=== PATIENT | female | born 1970 | race Caucasian/White ===

== ENCOUNTER → 2021-03-22 10:30 | Outpatient (CLI) | payer OTHER, SELFPAY ==
--- NOTE | ~2021-03-22 | DEXA_ITS ---
Bone Density Report Name: Ana Laura Arriola Age: 50 Sex: Female Ethnicity: White Date of : 1970 Indication: postmenopausal; screening for osteoporosis; Referring Provider: ARISTEO CRAIG Study: Bone densitometry was performed. Exam Date: March 22, 2021 Accession number: [id number] Bone Density: Region BMD T-score Z-score Classification AP Spine (L1-L4) 0.800 -2.2 -1.4 Osteopenia Femoral Neck (Left) 0.492 -3.2 -2.4 Osteoporosis Total Hip (Left) 0.579 -3.0 -2.5 Osteoporosis Femoral Neck (Right) 0.500 -3.1 -2.3 Osteoporosis Total Hip (Right) 0.583 -2.9 -2.4 Osteoporosis Total Hip Mean 0.581 -3.0 -2.5 Osteoporosis World Health Organization criteria for BMD impression classify patients as: Normal (T-score at or above -1.0), Osteopenia (T-score between -1.0 and -2.5), or Osteoporosis (T-score at or below -2.5). 10-year Fracture Risk: FRAX not reported because: Some T-score for Spine Total or Hip Total or Femoral Neck at or below -2.5 Treated for osteoporosis Clinical Information Provided by Patient: Is being treated for osteoporosis Has used the following medications: HRT (i.e. estrogen/hormone therapy), Vitamin D, MTV Patient maximum height was 64.5 Menopause Age: 49 No regular weight bearing exercise Drinks caffeinated beverages Onset of menses at age 13 Number of children 2 Impression: The patient has osteoporosis, based on the Left Femoral Neck T-score. Discussion: It is important to ask patients whether they are taking their medications and to encourage continued and appropriate compliance with their osteoporosis therapies to reduce fracture risk. It is also important to review their risk factors and encourage appropriate calcium and vitamin D intakes, exercise, fall prevention and other lifestyle measures. Follow-Up: Consider a repeat BMD and Vertebral Fracture Assessment (VFA) exam in 2 years or sooner if medically necessary, to reassess this patient's status. Reported by: ELMO on 03/22/2021 12:04:00 PM. Reviewed, dictated and finalized at location AStephanie [place]
--- NOTE | ~2021-03-22 | MM_ITS ---
EXAMINATION: MM screening natalia BI w sohan HISTORY: Screening mammogram TECHNIQUE: Craniocaudal and mediolateral oblique 3-D tomosynthesis images were obtained and synthetic 2-D images were generated. CAD analysis was submitted and interpreted. COMPARISON: No prior mammogram is available for comparison at this institution. BREAST PARENCHYMAL COMPOSITION: There are scattered areas of fibroglandular density. FINDINGS: New focal asymmetry is suggested in the posterior lower left breast on craniocaudal view (c raniocaudal Tomosynthesis image ). Diagnostic left mammogram is recommended, with ultrasound if required. Otherwise there is no evidence of suspicious mass, calcification, or architectural distortion to sugg est malignancy in either breast. There has been no other suspicious interval change. IMPRESSION: 1. New asymmetric density in the posterior lower mid left breast 2. Diagnostic left mammogram is recommended, with ultrasound if required BI-RADS Category 0: Incomplete: Needs additional imaging evaluation. Reviewed, dictated and finalized at location A.
== END ==
PROVIDERS: PCP Family Medicine; Visit Provider Obstetrics & Gynecology Gynecology
DX: Z12.31 Encounter for screening mammogram for malignant neoplasm of breast (principal); Z78.0 Asymptomatic menopausal state; R92.8 Other abnormal and inconclusive findings on diagnostic imaging of breast; M85.88 Other specified disorders of bone density and structure, other site; M81.0 Age-related osteoporosis without current pathological fracture
CPT/HCPCS: 77063; 77067; 77080

== ENCOUNTER → 2021-04-26 07:39 | Outpatient (CLI) | payer OTHER, SELFPAY ==
--- NOTE | ~2021-04-26 | MMUS_ITS ---
EXAMINATION: MM diagnostic natalia LT w sohan, US breast LT complete HISTORY: Follow-up left breast asymmetry TECHNIQUE: Additional 3-D tomosynthesis images of the left breast were performed and synthetic 2-D im ages were generated. CAD analysis was submitted and interpreted. High resolution complete left breast ultrasound was performed. COMPARISON: 01/04/2014 BREAST PARENCHYMAL COMPOSITION: Breast composed of scattered areas of fibroglandular density. FINDINGS: MAMMOGRAPHIC FINDINGS: There are no suspicious masses, calcifications or architectural distortion in the left breast to sugg est malignancy. ULTRASOUND: Complete left breast ultrasound: Normal heterogeneous echotexture without focal solid or cystic mass. IMPRESSION: 1. No evidence for malignancy in the left breast. 2. Routine yearly screening mammogram and regular clinical breast examination are recommended. BI-RADS Category 2: Benign finding(s). Reviewed, dictated and finalized at location A. IMPRESSION: 1. No evidence for malignancy in the left breast. 2. Routine yearly screening mammogram and regular clinical breast examination a re recommended. BI-RADS Category 2: Benign finding(s).
== END ==
PROVIDERS: PCP Family Medicine; Visit Provider Obstetrics & Gynecology Gynecology
DX: R92.8 Other abnormal and inconclusive findings on diagnostic imaging of breast (principal)
CPT/HCPCS: 76641; 77061; 77065; G0279

== ENCOUNTER 2022-12-17 12:56 | Outpatient (CLI) | payer BC, SELFPAY ==
--- NOTE | ~2022-12-17 | XR_ITS ---
EXAMINATION: XR chest 2V Exam Date/Time: 12/17/2022 13:07 CDT HISTORY: mid chest pain x 2 wks Comparison: None available. RESULT: Lines, tubes, and devices: None. Lungs and pleura: Clear. Cardiomediastinal silhouette: Unremarkable. Other: No acute osseous or upper abdominal finding. IMPRESSION: No acute cardiopulmonary process. Reviewed, dictated and finalized at location K.
--- NOTE | 2022-12-17 13:17 | ECG_ITS ---
Measurements Intervals [place] Rate: 79 P: 61 CA: 154 QRS: 71 QRSD: 81 T: 70 QT: 374 QTc: 429 Interpretive Statements SINUS RHYTHM NO PREVIOUS ECG AVAILABLE FOR COMPARISON Electronically Signed On 12-18-2022 13:59:56 CDT by Christiano Proctor M.D.
== END 2022-12-17 12:57 | disposition home or self-care (01) ==
PROVIDERS: PCP Family Medicine; Visit Provider Physician Assistant Medical
DX: R07.89 Other chest pain (principal)
CPT/HCPCS: 71046; 93005

== ENCOUNTER → 2023-01-16 16:32 | Outpatient (CLI) | payer BC, SELFPAY ==
--- NOTE | ~2023-01-16 | MM_ITS ---
EXAMINATION: MM screening [facility] BI w sohan HISTORY: Screening mammogram TECHNIQUE: Craniocaudal and mediolateral oblique 3-D tomosynthesis images were obtained and synthetic 2-D images were generated. CAD analysis was submitted and interpreted. COMPARISON: 04/26/2021, 03/22/2021, 07/13/2019 BREAST PARENCHYMAL COMPOSITION: There are scattered areas of fibroglandular density. FINDINGS: No suspicious mass, calcification, or architectural distortion are identified in either vaughn ast to suggest malignancy. There has been no suspicious interval change. IMPRESSION: 1. No mammographic evidence of malignancy. 2. Recommend routine screening mammography in one year. BI-RADS Category 1: Negative Reviewed, dictated and finalized at location A.
== END ==
PROVIDERS: PCP Family Medicine; Visit Provider Obstetrics & Gynecology Gynecology
DX: Z12.31 Encounter for screening mammogram for malignant neoplasm of breast (principal)
CPT/HCPCS: 77063; 77067

== ENCOUNTER 2023-01-30 09:10 | Outpatient (CLI) | payer BC, SELFPAY ==
--- NOTE | 2023-01-30 09:32 | EST_ITS ---
Patient Info Name: Ana Laura Arriola Age: 52 years : 1970 Gender: Female Ht: 65 in Wt: 137 lbs BSA: 1.69 m2 HR: 84 bpm BP: 125 / 78 mmHg Heart Rhythm: Sinus Rhythm Exam Date: 01/30/2023 9:42 AM Exam Location: [facility] Stress Patient Status: Outpatient Admit Date: 01/30/2023 Staff Ordering Physician: Lazara Atkins PA-C Attending Provider: Penelope Soto MD Exercise Technologist: Crystal Devries CT Exercise Physician: German Bradley DO Exam Type: CA stress test treadmill Study Info Indications R07.89 - Other chest pain A regadenoson stress test was performed. Summary 1. 1. Negative Curtis exercise stress test for ischemic ST changes by ECG criteria. 2. 2. Good functional capacity, achieving 10 METs of workload. 3. 3. Appropriate HR response to exercise. 4. 4. Appropriate HR recovery at 1 minute post exercise. 5. 5. No imaging with stress testing. 6. 6. Patient informed of the above results. Protocol: Curtis Stress ECG Details Stage: REST Duration (min): 1 min : 6 sec Speed (mph): 0.0 Grade (%): 0 HR (bpm): 84 SBP (mmHg): 125 DBP (mmHg): 78 METS: --- Stage: REST Duration (min): 16 min : 20 sec Speed (mph): 0.0 Grade (%): 0 HR (bpm): 97 SBP (mmHg): 125 DBP (mmHg): 78 METS: --- Stage: STAGE 1 Duration (min): 1 min : 0 sec Speed (mph): 1.7 Grade (%): 10 HR (bpm): 112 SBP (mmHg): 125 DBP (mmHg): 78 METS: --- Stage: STAGE 1 Duration (min): 2 min : 0 sec Speed (mph): 1.7 Grade (%): 10 HR (bpm): 122 SBP (mmHg): 125 DBP (mmHg): 78 METS: --- Stage: STAGE 1 Duration (min): 3 min : 0 sec Speed (mph): 1.7 Grade (%): 10 HR (bpm): 116 SBP (mmHg): 150 DBP (mmHg): 67 METS: --- Stage: STAGE 2 Duration (min): 1 min : 0 sec Speed (mph): 2.5 Grade (%): 12 HR (bpm): 125 SBP (mmHg): 150 DBP (mmHg): 67 METS: --- Stage: STAGE 2 Duration (min): 2 min : 0 sec Speed (mph): 2.5 Grade (%): 12 HR (bpm): 135 SBP (mmHg): 145 DBP (mmHg): 63 METS: --- Stage: STAGE 2 Duration (min): 3 min : 0 sec Speed (mph): 2.5 Grade (%): 12 HR (bpm): 139 SBP (mmHg): 145 DBP (mmHg): 63 METS: --- Stage: STAGE 3 Duration (min): 1 min : 0 sec Speed (mph): 3.4 Grade (%): 14 HR (bpm): 153 SBP (mmHg): 145 DBP (mmHg): 63 METS: --- Stage: STAGE 3 Duration (min): 1 min : 40 sec Speed (mph): 3.4 Grade (%): 14 HR (bpm): 160 SBP (mmHg): 145 DBP (mmHg): 63 METS: --- Stage: RECOVERY Duration (min): 0 min : 19 sec Speed (mph): 0.0 Grade (%): 0 HR (bpm): 160 SBP (mmHg): 145 DBP (mmHg): 63 METS: --- Stage: RECOVERY Duration (min): 1 min : 19 sec Speed (mph): 0.0 Grade (%): 0 HR (bpm): 114 SBP (mmHg): 145 DBP (mmHg): 63 METS: --- Stage: RECOVERY Duration (min): 2 min : 19 sec Speed (mph): 0.0 Grade (%): 0 HR (bpm): 104 SBP (mmHg): 145 DBP (mmHg): 63 METS:
== END 2023-01-30 09:11 | disposition home or self-care (01) ==
LOC: ANHCARD 09:12
PROVIDERS: PCP Family Medicine; Visit Provider Family Medicine
DX: R07.89 Other chest pain (principal)
CPT/HCPCS: 93017

== ENCOUNTER → 2023-06-03 14:04 | Outpatient (CLI) | payer BC, SELFPAY ==
--- NOTE | ~2023-06-03 | US_ITS ---
EXAMINATION: US thyroid DATE: 06/03/2023 14:39 INDICATION: Nontoxic multinodular goiter. TECHNIQUE: Multiple ultrasound images of the thyroid were obtained. COMPARISON: None. FINDINGS: The right thyroid lobe measures 6.0 x 1.7 x 1.5 cm. The left thyroid lobe measures 4.5 x 0.9 x 1.5 c m. In the right thyroid lobe, there is a 2.2 cm solid, hypoechoic, wider than tall nodule with kirit h margin without echogenic foci (TI-RADS TR4). In the right thyroid lobe, there is a 7 mm solid, hypo echoic, wider than tall nodule with smooth margin and macrocalcification (TR4). IMPRESSION: 1. Multinodular goiter. The patient reports a prior benign biopsy in 2021. If the 2.2 cm right thyroi d nodule is stable from that time, no follow-up is needed. Reviewed, dictated and finalized at location A. IMPRESSION: 1. Multinodular goiter. The patient reports a prior benign biopsy in 2021. If t he 2.2 cm right thyroid nodule is stable from that time, no follow-up is needed .
== END ==
PROVIDERS: PCP Family Medicine; Visit Provider Otolaryngology
DX: E04.2 Nontoxic multinodular goiter (principal)
CPT/HCPCS: 76536

== ENCOUNTER 2023-07-15 09:54 | Outpatient (CLI) | payer BC, SELFPAY ==
--- NOTE | ~2023-07-15 | MR_ITS ---
EXAMINATION: MR cervical spine wo con DATE: 07/15/2023 10:57 INDICATION: Neck pain. TECHNIQUE: Magnetic resonance imaging (MRI) of the cervical spine was performed without intravenous c ontrast. COMPARISON: None FINDINGS: There is 3 degrees levocurvature of cervicothoracic spine. There is mild chronic anterior w edging of T1 vertebral body. There is mildly decreased disc height at C5-C6 and C6-C7. The spinal cor d signal intensity is normal. The following disc levels are specifically discussed: C2-C3: The disc does not extend beyond the endplate margin. There is no uncovertebral joint osteoarth ritis. There is no facet joint osteoarthritis. There is no neural foraminal stenosis. There is no mario alberto tral canal stenosis. C3-C4: The disc does not extend beyond the endplate margin. There is mild bilateral uncovertebral lawrence nt osteoarthritis. There is moderate right and mild left facet joint osteoarthritis. There is no neur al foraminal stenosis. There is no central canal stenosis. C4-C5: The disc does not extend beyond the endplate margin. There is no uncovertebral joint osteoarth ritis. There is no facet joint osteoarthritis. There is no neural foraminal stenosis. There is no mario alberto tral canal stenosis. C5-C6: There is a central extrusion. There is no uncovertebral joint osteoarthritis. There is no face t joint osteoarthritis. There is no neural foraminal stenosis. There is mild central canal stenosis. C6-C7: The disc is bulging. There is mild bilateral uncovertebral joint osteoarthritis. There is mild bilateral facet joint osteoarthritis. There is mild bilateral neural foraminal stenosis. There is mi ld central canal stenosis. C7-T1: The disc is bulging. There is no uncovertebral joint osteoarthritis. There is mild bilateral f acet joint osteoarthritis. There is mild bilateral neural foraminal stenosis. There is no central can al stenosis. IMPRESSION: 1. Mild cervical spondylosis. Reviewed, dictated and finalized at location E. ET MARKER
== END 2023-07-15 09:55 ==
PROVIDERS: PCP Family Medicine; Visit Provider Family Medicine
DX: M54.2 Cervicalgia (principal); R93.7 Abnormal findings on diagnostic imaging of other parts of musculoskeletal system; M43.02 Spondylolysis, cervical region
CPT/HCPCS: 72141

== ENCOUNTER 2024-05-27 07:43 | Outpatient (CLI) | payer BC, SELFPAY ==
--- NOTE | ~2024-05-27 | MM_ITS ---
EXAMINATION: MM screening [facility] BI w sohan HISTORY: Screening TECHNIQUE: Craniocaudal and mediolateral oblique 3-D tomosynthesis images were obtained and synthetic 2-D images were generated. CAD analysis was submitted and interpreted. COMPARISON: Comparison to multiple prior studies sequentially, with oldest reviewed study dated 01/10. BREAST PARENCHYMAL COMPOSITION: Not dense: There are scattered areas of fibroglandular density. FINDINGS: There is no evidence of suspicious mass, calcification, or architectural distortion to sugg est malignancy in either breast. There has been no suspicious interval change. IMPRESSION: 1. No mammographic evidence of malignancy. 2. Recommend routine screening mammography in one year. BI-RADS Category 1: Negative Reviewed, dictated and finalized at location B.
== END 2024-05-27 07:44 | disposition home or self-care (01) ==
PROVIDERS: PCP Family Medicine; Visit Provider Obstetrics & Gynecology Gynecology
DX: Z12.31 Encounter for screening mammogram for malignant neoplasm of breast (principal)
CPT/HCPCS: 77063; 77067

== ENCOUNTER 2024-06-18 11:54 | Outpatient (CLI) | payer BC, SELFPAY ==
--- NOTE | ~2024-06-18 | US_ITS ---
EXAMINATION: US thyroid DATE: 06/18/2024 12:11 INDICATION: Nontoxic multinodular goiter TECHNIQUE: Multiple ultrasound images of the thyroid were obtained. COMPARISON: 06/03/2023 FINDINGS: The right thyroid lobe measures 6.0 x 1.5 x 1.5 cm. In the lower pole of the right lobe of the thyroid gland, there is a 20 x 13 x 15 mm mixed cystic and solid, isoechoic, wider than tall nodule with smooth margins and no echogenic foci (TIRADS 2 nodule) . Previously measuring 22 x 15 x 16 mm, decreased in size from prior. In the midportion of the right lobe of the thyroid gland, there is a 8 x 3 x 7 mm solid, hyperechoic , wider than tall nodule with ill-defined margins and macrocalcifications TIRADS 4 nodule). Previousl y measuring 7 x 5 x 7 mm, which given changes in positioning and technique, is unchanged. The left thyroid lobe measures 4.2 x 0.9 x 1.5 cm. The isthmus measures 2.3 mm and is unremarkable. There is normal echotexture and echogenicity throughout the left lobe of the thyroid gland, as well a s the remainder of the right lobe of the thyroid gland and the isthmus. No discrete nodules identified within the left lobe of the thyroid gland or the isthmus. Normal vascular flow is present bilaterally. IMPRESSION: TI-RADS 4 nodule within the midportion of the right lobe of the thyroid gland which does not meet siz e criteria for follow-up or FNA. TI-RADS 2 nodule within the lower pole of the right lobe of the thyroid gland which is decreasing in size from previous examination, and is not suspicious and no FNA is recommended Reviewed, dictated and finalized at location A. IMPRESSION: TI-RADS 4 nodule within the midportion of the right lobe of the thyroid gland w hich does not meet size criteria for follow-up or FNA. TI-RADS 2 nodule within the lower pole of the right lobe of the thyroid gland w hich is decreasing in size from previous examination, and is not suspicious and no FNA is recommended
== END 2024-06-18 11:55 | disposition home or self-care (01) ==
LOC: MICIMG 11:55
PROVIDERS: PCP Family Medicine; Visit Provider Otolaryngology
DX: E04.2 Nontoxic multinodular goiter (principal)
CPT/HCPCS: 76536

== ENCOUNTER 2025-05-18 12:48 | Outpatient (CLI) | payer BC, SELFPAY ==
--- NOTE | ~2025-05-18 | CT_ITS ---
CT ABDOMEN AND PELVIS WITHOUT CONTRAST Clinical History: Unspecified abdominal pain, RLQ Comparison: CT abdomen pelvis 12/26/2014 Technique: Unenhanced axial images lung bases to symphysis pubis Coronal, sagittal reformats CT images acquired with automatic exposure control for dose reduction DLP: 411 mGy-cm Findings: Without intravenous contrast, sensitivity for detecting visceral parenchymal abnormalities decreased. Lung bases: Clear. Visualized heart and pericardium: Unremarkable. Liver: Unremarkable. Gallbladder: Unremarkable. Spleen: Unremarkable. Pancreas: Unremarkable. Adrenal glands: Unremarkable. Kidneys: Right kidney- No hydronephrosis. Tiny stones. Left kidney- No hydronephrosis. Tiny stones. Distal esophagus/stomach: Unremarkable. Small bowel loops: Normal caliber and wall thickness. Colon: Normal caliber and wall thickness. Normal RLQ appendix. Nodes: No enlarged nodes. Peritoneum: No ascites. No free intraperitoneal air. Urinary bladder: Unremarkable. Tiny calcification near left UVJ. Uterus: Unremarkable. Adnexa: No masses. Bones: No acute bony abnormality. Soft tissues: Small umbilical hernia with fat. Unopacified abdominal aorta: No aneurysmal dilatation. IMPRESSION: 1. No acute findings. 2. Small bilateral nephrolithiasis. No hydronephrosis. 3. Tiny calcification near left UVJ. Distal ureteral stone versus phlebolith, but again, no hydronephrosis. Reviewed, dictated and finalized at location R.
== END 2025-05-18 12:49 | disposition home or self-care (01) ==
LOC: MICIMG 12:49
PROVIDERS: PCP Family Medicine; Visit Provider Family Medicine
DX: N20.2 Calculus of kidney with calculus of ureter (principal)
CPT/HCPCS: 74176

== ENCOUNTER 2025-06-08 07:36 | Outpatient (CLI) | payer BC, SELFPAY ==
--- NOTE | ~2025-06-08 | MM_ITS ---
EXAMINATION: MM screening [facility] BI w sohan HISTORY: Screening TECHNIQUE: Craniocaudal and mediolateral oblique 3-D tomosynthesis images were obtained and synthetic 2-D images were generated. CAD analysis was submitted and interpreted. COMPARISON: 01/16/2023 BREAST PARENCHYMAL COMPOSITION: The breasts are heterogeneously dense, which may obscure small masses. FINDINGS: There is no evidence of suspicious mass, calcification, or architectural distortion to suggest malignancy. Asymmetry in the upright breast, posterior depth, seen in the right MLO projection. IMPRESSION: 1. Asymmetry in the upper right breast, posterior depth, seen in the right MLO projection. 2. No evidence of malignancy left breast. BI-RADS 0: Incomplete-Need additional imaging evaluation. Reviewed, dictated and finalized at location Q.
== END 2025-06-08 07:37 | disposition home or self-care (01) ==
PROVIDERS: PCP Obstetrics & Gynecology Gynecology; Visit Provider Obstetrics & Gynecology Gynecology
DX: Z12.31 Encounter for screening mammogram for malignant neoplasm of breast (principal); R92.8 Other abnormal and inconclusive findings on diagnostic imaging of breast
CPT/HCPCS: 77063; 77067

== ENCOUNTER 2025-07-28 12:54 | Outpatient (CLI) | payer BC, SELFPAY ==
--- NOTE | ~2025-07-28 | MMUS_ITS ---
EXAMINATION: US breast right limited, MM diagnostic mammogram right w sohan HISTORY: Additional imaging TECHNIQUE: Craniocaudal and mediolateral oblique 3-D tomosynthesis images were obtained and synthetic 2-D images were generated. CAD analysis was submitted and interpreted. Grayscale sonography over the area(s) of interest with color Doppler if there is a finding. COMPARISON: June 08 BREAST PARENCHYMAL COMPOSITION: Dense: The breasts are heterogeneously dense MAMMOGRAM FINDINGS: A spiculated mass persists in the posterior depth at approximately 10:00. There are no suspicious calcifications. There are no skin or nipple abnormalities identified. There is no adenopathy seen on the images submitted. ULTRASOUND FINDINGS: Sonography 2 10:00 right breast demonstrates the presence of a hypoechoic mass with ill-defined margins and irregular shape. There are a few angular margins. There is an echogenic halo. The maximum dimension is 1.2 cm. This accounts for the mammographic mass. There also appears to be some neovascularity. Sonography through the right axilla demonstrates a lymph node with cortical thickness up to 5 mm. IMPRESSION: Suspicious sonographic masses accounting for the mammographic finding. Axillary lymph node with cortical thickening. Ultrasound-guided core biopsy is recommended for both structures. BI-RADS 5 - Highly suggestive of malignancy - appropriate action should be taken. Reviewed, dictated and finalized at location B. AT MONITORING ANALYST IMPRESSION: Suspicious sonographic masses accounting for the mammographic finding. Axillary lymph node with cortical thickening. Ultrasound-guided core biopsy is recommen ded for both structures. BI-RADS 5 - Highly suggestive of malignancy - appropriate action should be take n.
--- OUTSIDE RECORDS SUMMARY | 2025-07-28 14:02 | XMS_ITS | Clinical Summary ---
Author Organization [facility] Address [address] [place] [address] Care Team Providers Care Cooling Room Attendant Name Role Phone Penelope Soto MD Primary Care Provider Source Comments [facility],non-owned Affiliates and Associated Physician Practices is amultiple site organization consisting of ambulatory clinics and hospital sitesin [place], [place], [place] and [place]. This disclosure is being madepursuant to the Care Everywhere program and may not contain all information available regarding this patient. Last updated 18.[facility] Allergies No known active allergies Medications * Be aware that medications may not be up to date on this document. Alwaysverify current medications with the patient. amitriptyline (ELAVIL) 10 MG tablet TK 2 T PO QHS 0 9 Active nitrofurantoin macrocrystal (MACRODANTIN) 50 MG capsule 9 Active metroNIDAZOLE (FLAGYL) 500 MG tablet 8 Active IBUPROFEN PO Active cetirizine (ZYRTEC ALLERGY) 10 MG tablet Take 10 mg by mouth once daily Active Multiple Vitamins-Calcium (ONE-A-DAY WOMENS PO) Active valACYclovir (VALTREX) 500 MG tablet Take 500 mg by mouth 2 times daily 9 Active vitamin D, ergocalciferol, (DRISDOL) 87876 units capsule Take 1 capsule by mouth every 7 days 12 capsule 9 Active Active Problems Problem Noted Date Diagnosed Date Carpal tunnel syndrome 01/07/2019 Hypovitaminosis D 01/07/2019 Pain in joint, lower leg 11/10/2018 Bilateral hand pain 11/10/2018 Paresthesias 11/10/2018 Family hx osteoporosis 11/10/2018 Family History Medical History Relation Name Comments Hypertension Father Hyperlipidemia Mother Hypertension Mother Arthritis - Rheumatoid Other great maternal aun t Osteoporosis Sister onset at 46 yea rs old Autism Spectrum Disorder Son Lupus Neg Hx Psoriasis Neg Hx Thyroid Disease Neg Hx Relation Name Status Comments Brother Alive Daughter Alive Father Alive Mother Alive Other great maternal aunt Sister Alive Son Alive Social History Tobacco Use Types Packs/Day Years Used Date Smoking Tobacco: Never Smokeless Tobacco: Never Alcohol Use Standard Drinks/Week Comments Yes 0 (1 standard drink = 0.6 oz pur e alcohol) occasional Comments No Sex and Gender Information Value Date Recorded Sex Assigned at Not on file 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 Gender Identity Not on file Sexual Orientation Not on file Last Filed Vital Signs Vital Sign Reading Time Taken Comments Blood Pressure 128/82 01/07/2019 2:04 PM CDT Pulse 96 01/07/2019 2:04 PM CDT Temperature 36.7 C (98 F) 01/07/2019 2:04 PM CDT Respiratory Rate - - Oxygen Saturation - - Inhaled Oxygen Concentration - - Weight 61.2 kg (135 lb) 01/07/2019 2:04 PM CDT Height 165.1 cm (5' 5) 01/07/2019 2:04 PM CDT Body Mass Index 22.47 01/07/2019 2:04 PM CDT Plan of Treatment Health Maintenance Due Date Last Done Comments COLOGUARD (AGES 45-75) - COL ON CA SCREENING 1970 COLON MONITORING 1970 COLONOSCOPY - COLON CA SCREENING 1969 CT COLONOGRAPHY - COLON CA SCREENING 1970 Colorectal Cancer Screening 1970 FIT - COLON CA SCREENING 1970 FLEX SIG - COLON CA SCREENING 1970 LIPID TESTING 1970 MAMMOGRAM 1970 HIV SCREENING 1984 DTAP/TDAP/TD VACCINES (1 - Tdap) 1988 HEPATITIS B VACCINE (1 of 3 - 19+ 3-dose series) 1988 PAP SMEAR 1990 Cervical Cancer Screening 11/07/1999 PAP with HPV 11/07/1999 PNEUMOCOCCAL VACCINE 50+ (1 of 1 - PCV) 11/07/2019 ZOSTER VACCINE (1 of 2) 11/07/2019 DEPRESSION SCREENING 08/26/2024 COVID-19 VACCINE (1 - 2024-2 6 season) 2025 INFLUENZA VACCINE (#1) 2025 HEPATITIS C SCREENING Completed 12/08/2018 HIB VACCINE Aged Out No longer eligi ble based on patient's age to complete this topic HPV VACCINE Aged Out No longer eligi ble based on patient's age to complete this topic MENINGOCOCCAL (Group B) VACC INE SHARED DECISION-MAKING Aged Out No longer eligibl e based on patient's age to complete this topic MENINGOCOCCAL GROUPS A/C/Y/W VACCINE Aged Out No longer eligible b ased on patient's age to complete this topic Procedures Procedure Name Priority Date/Time Associated Diagnosis Comments HEPATITIS C AB W RFLX VERIFICATION Routine 12/08/2018 12:03 PM CDT Arthralgia of both lower legs Bilateral hand pain from Last 3 Months or Most Recently Relevant to Health Maintenance Results * HEPATITIS C AB W RFLX VERIFICATION (12/08/2018 12:03 PM CDT) Hepatitis C Antibody <0.1 0.0 - 0.9 s/co ratio [facility] INSURANCE BILL Blood BLOOD SPECIMEN / Unknown 12/08/2018 12:03 PM CDT 12/08/2018 Narrative Resulting Agency Comment [facility] [address] [facility] [id number] us [facility] BOO LAB - CHEMISTRY ORDERABLES Fi nal Result [facility] INSURANCE BILL [address] [place] [id number] from Last 3 Months or Most Recently Relevant to Health Maintenance Insurance ON LICENSE OF [facility] ON LICENSE OF [facility] Care Teams Cooling Room Attendant Relationship Specialty Start Date End Date Penelope Soto MD [address] [place] [address] PCP - General 11/10/18
--- OUTSIDE RECORDS SUMMARY | 2025-07-28 14:02 | XMS_ITS | Clinical Summary ---
Author Organization [facility] Address [address] [place] [address] Care Team Providers Care Distillery Miller Name Role Phone Penelope Soto MD Primary Care Provider [phone] Allergies No known active allergies Medications estradiol 0.05 MG/24HR patch Place 1 patch onto the skin twice a week. Active Active Problems No known active problems Family History Medical History Relation Comments Asthma Brother Asthma Father Hypertension Mother Migraines Sister Osteoarthritis Sister Relation Status Comments Brother Father Mother Sister Social History Tobacco Use Types Packs/Day Years Used Date Smoking Tobacco: Never Smokeless Tobacco: Never Alcohol Use Standard Drinks/Week Comments Yes 0 (1 standard drink = 0.6 oz pur e alcohol) Comments No Sex and Gender Information Value Date Recorded Sex Assigned at Not on file Legal Sex Female 8:41 AM CDT Gender Identity Not on file Sexual Orientation Not on file Last Filed Vital Signs Vital Sign Reading Time Taken Comments Blood Pressure 119/75 07/10/2023 8:52 PM OUTBOARD SYSTEM OPERATOR Pulse 84 07/10/2023 8:52 PM OUTBOARD SYSTEM OPERATOR Temperature 36.6 C (97.9 F) 07/10/2023 8:52 PM OUTBOARD SYSTEM OPERATOR Respiratory Rate 16 07/10/2023 8:52 PM OUTBOARD SYSTEM OPERATOR Oxygen Saturation 98% 07/10/2023 8:52 PM OUTBOARD SYSTEM OPERATOR Inhaled Oxygen Concentration - - Weight 63.5 kg (140 lb) 07/10/2023 7:29 PM OUTBOARD SYSTEM OPERATOR Height 165.1 cm (5' 5) 07/10/2023 7:29 PM OUTBOARD SYSTEM OPERATOR Body Mass Index 23.3 07/10/2023 7:29 PM OUTBOARD SYSTEM OPERATOR Plan of Treatment Health Maintenance Due Date Last Done Comments Cervical Cancer Screening Pa p Smear (Age 30 to 64) Every 3 Years 1969 Colorectal Cancer Screening Colonoscopy (10 Years) 1969 Annual Physical 1972 Hepatitis C 11/07/1987 DTaP, Tdap and Td Vaccines ( 1 - Tdap) 1988 Hepatitis B Vaccines (1 of 3 - 19+ 3-dose series) 1988 Cervical Cancer Screening Pa p with HPV Testing (Age 30 to 64) Every 5 Years 11/07/1999 Cervical Cancer Screening wi th HPV 11/07/1999 Mammogram Screening 2009 Pneumococcal Vaccine: 50+ Years (1 of 1 - PCV) 11/07/2019 Zoster Vaccines (1 of 2) 11/07/2019 COVID-19 Vaccine (3 - 2024-2 6 season) 2025 12/04/2020, 11/10/2020 Influenza Adult (#1) 2025 Hepatitis A Vaccines Aged Out No long er eligible based on patient's age to complete this topic Meningococcal B Vaccine Aged Out No l onger eligible based on patient's age to complete this topic Meningococcal Vaccine Aged Out No bobbi dale eligible based on patient's age to complete this topic RSV Immunizations Under 20 Months Aged Out No longer eligible b ased on patient's age to complete this topic Insurance [facility] Care Teams Distillery Miller Relationship Specialty Start Date End Date Penelope Soto MD [address] [place] [address] PCP - General FAMILY PRACTICE 06/06/21
--- OUTSIDE RECORDS SUMMARY | 2025-07-28 14:02 | XMS_ITS | Clinical Summary ---
Author Organization [facility] Address [address] [place] [address] Care Team Providers Care Napkin Machine Operator Name Role Phone Penelope Soto MD Primary Care Provider [phone] Allergies No known active allergies Medications oxyCODONE-aceta minophen (PERCOCET) 5-325 mg per tabletIndicatio ns:Pain Take 1 tablet by mouth every 4 (four) hours as needed for pain 12 tablet 1 Active Additional Information Patient not taking.Reported on 07/07/2021 cetirizine (ZyrTEC) 10 mg tablet Take 10 mg by mouth daily Active butalbital-acet aminophen-caffe ine (FIORICET) 50-300-40 mg per capsule TAKE 1 CAPSULE BY MOUTH EVERY 8 HOURS NEEDED FOR PAIN 1 Active ergocalciferol (VITAMIN D) 50,000 unit capsule Take 5,000 Units by mouth daily 9 Active estradioL (VAGIFEM) 10 mcg tablet 1 Active estradiol-noret hindrone (ACTIVELLA) 0.5-0.1 mg per tablet 1 Active hydrOXYzine (ATARAX) 25 mg tablet 1 Active multivitamin (MULTI-DAY ORAL) Take by mouth daily Active calcium carbonate (CALTRATE 600 ORAL) Take by mouth daily Active MAGNESIUM CITRATE ORAL Take 400 mg by mouth daily Active Active Problems No known active problems Family History Medical History Relation Name Comments Osteoporosis Sister Relation Name Status Comments Sister Social History Tobacco Use Types Packs/Day Years Used Date Smoking Tobacco: Never Smokeless Tobacco: Never Personal Safety Answer Date Recorded Getting School Help Needed Not on file 11/09 Comments Unknown Sex and Gender Information Value Date Recorded Sex Assigned at Not on file Legal Sex Female 2:06 PM CDT Gender Identity Not on file Sexual Orientation Not on file Last Filed Vital Signs Vital Sign Reading Time Taken Comments Blood Pressure 128/72 06/11/2021 10:15 PM CDT Pulse 87 06/11/2021 10:15 PM CDT Temperature 36.6 C (97.9 F) 06/11/2021 2:10 PM CDT Respiratory Rate 16 06/11/2021 5:33 PM CDT Oxygen Saturation 95% 06/11/2021 10:15 PM CDT Inhaled Oxygen Concentration - - Weight 62.1 kg (137 lb) 07/07/2021 1:10 PM REGISTERED ART THERAPIST Height 165.1 cm (5' 5) 07/07/2021 1:10 PM REGISTERED ART THERAPIST Body Mass Index 22.8 07/07/2021 1:10 PM REGISTERED ART THERAPIST Plan of Treatment Not on file Insurance [employer] Care Teams Napkin Machine Operator Relationship Specialty Start Date End Date Penelope Soto MD PCP - General Family Medicine 06/11/21
== END 2025-07-28 12:55 | disposition home or self-care (01) ==
LOC: ANHFOHIMG 12:56
PROVIDERS: Visit Provider Obstetrics & Gynecology Gynecology
DX: R92.8 Other abnormal and inconclusive findings on diagnostic imaging of breast (principal)
CPT/HCPCS: 76642; 77061; 77065; G0279

== ENCOUNTER 2025-08-06 07:45 | Outpatient (CLI) | payer BC, SELFPAY ==
--- NOTE | ~2025-08-06 | MMUS_ITS ---
PROCEDURE(S): US breast biopsy RT w image, MM post biopsy diagnostic RT, US biopsy lymph node INDICATION(S): N63.11 - Unspecified lump in the right breast, upper outer quadrant COMPARISON(S): Studies dating back to June 08 BREAST PARENCHYMAL COMPOSITION: Dense: The breasts are heterogeneously dense TECHNIQUE/FINDINGS: Informed consent was obtained. Under sterile conditions, 1% lidocaine was injected as local anesthetic. Lidocaine with epinephrine was utilized for more deep anesthesia. A skin pernell was made with a scalpel, and a coaxial was placed with ultrasound guidance. Following that, multiple samples were obtained with a 14-gauge spring- loaded biopsy needle and sonographic guidance. No complications occurred. The patient tolerated the procedure well. A biopsy marker was placed in the biopsy bed at the end of the procedure. The entire procedure was then repeated for a posterior lymph node in the upper outer quadrant near the axilla. A two-view mammogram demonstrates the biopsy markers in the expected location. IMPRESSION: Status post ultrasound-guided core biopsy. Pathology is pending. Reviewed, dictated and finalized at location C. OWING MACHINE OPERATOR IMPRESSION: Status post ultrasound-guided core biopsy. Pathology is pending. IMPRESSION: Status post ultrasound-guided core biopsy. Pathology is pending.
--- NOTE | 2025-08-06 10:31 | S_PTH ---
PATIENT: Ana Laura Arriola LOC: [facility] U#:[id number] AGE/SX: 54/F ROOM: RE08/06/[address]: Teresita Miranda MD : 1970 BED: DIS: 08/06/2025 SPEC #: [id number] RECD: 08/06/25 12:42 STATUS: SHARAD REJuanita #: [id number] SERA: 08/06/25 10:[address]: Teresita Miranda DEPT: [facility] Surgical RECD BY: Sandra Rodriguez ENTERED: 08/06/25 12:42 SP TYPE: Surgical OTHR DR: Hitesh Causey, UX DESIGN LEAD Tissues: A - Breast Biopsy B - Lymph Node Biopsy Procedures: P63 Unstained Slides Hematoxylin and Eosin Stain Gross and Microscopic Level 4 ER-60 KS-60 MIB-60 HER 2-60 CK 5
== END 2025-08-06 07:46 | disposition home or self-care (01) ==
LOC: ANHFOHIMG 07:46
PROVIDERS: Visit Provider Surgery
DX: C50.411 Malignant neoplasm of upper-outer quadrant of right female breast (principal); R92.8 Other abnormal and inconclusive findings on diagnostic imaging of breast
CPT/HCPCS: 19083; 38505; 76942; 77065; 88305; 88342; 88360; A4648